=== PATIENT | male | born 1970 | race Caucasian/White ===

== ENCOUNTER → 2019-08-15 | Outpatient (REF) | payer BC ==
[2019-08-15 10:54] LABS: ALBUMIN 3.7 GM/DL (3.2-5.2); ALT/SGPT 117 U/L (12-78); BILIRUBIN,TOTAL 0.5 MG/DL (0.2-1.0); BLOOD UREA NITROGEN 14 MG/DL (7-18); CALCIUM LEVEL 8.4 MG/DL (8.5-10.1); CARBON DIOXIDE LEVEL 24 MEQ/L (21-32); CHLORIDE LEVEL 108 MEQ/L (98-107); CHOLESTEROL LEVEL 206 MG/DL (<200); CHOLESTEROL RISK RATIO 5.567 (<5); CREATININE FOR GFR 0.99 MG/DL (0.70-1.30); FREE T4 0.95 NG/DL (0.76-1.46); GLOMERULAR FILTRATION RATE > 60.0 (>60); GLUCOSE, FASTING 95 MG/DL (70-100); HDL CHOLESTEROL 37 MG/DL (>40); NON-HDL-C 169 MG/DL; POTASSIUM SERUM 4.4 MEQ/L (3.5-5.1); SODIUM LEVEL 140 MEQ/L (136-145); TOTAL PROTEIN 7.4 GM/DL (6.4-8.2); TRIGLYCERIDES LEVEL 498 MG/DL (<150)
[2019-08-15 10:55] LABS: BASO # 0.1 10^3/uL (0.0-0.2); BASO % 1.5 % (0.0-1.0); EOS # 0.2 10^3/uL (0.0-0.5); EOS % 3.4 % (0.0-3.0); HEMOGLOBIN 16.9 g/dl (13.5-17.5); LYMPH # 1.7 10^3/uL (1.5-5.0); LYMPH % 27.8 % (24.0-44.0); MEAN CORPUSCULAR HEMOGLOBIN 32.1 pg (27.0-33.0); MEAN CORPUSCULAR HGB CONC 35.2 g/dl (32.0-36.5); MEAN CORPUSCULAR VOLUME 91.1 fl (80.0-96.0); MONO # 0.4 10^3/uL (0.0-0.8); MONO % 6.4 % (0.0-5.0); NEUTROPHILS # 3.5 10^3/uL (1.5-8.5); NEUTROPHILS % 57.9 % (36.0-66.0); PLATELET COUNT, AUTOMATED 228 10^3/uL (150-450); RED BLOOD COUNT 5.27 10^6/uL (4.30-6.10); WHITE BLOOD COUNT 6.1 10^3/uL (4.0-10.0)
== END ==
LOC: M SFHCADAM 07:54
PROVIDERS: ATTEND Family Medicine
DX: Z00.00 Encounter for general adult medical examination without abnormal findings (principal)

== ENCOUNTER → 2019-10-10 | Outpatient (CLI) | payer BC ==
--- NOTE | 2019-10-10 20:09 | REP ---
Clinical: Elevated liver function tests. Technique: Real time silvestre scale ultrasound examination using curved array transducer. Findings: The liver is increased echogenicity with poor through transmission suggesting fatty infiltration. No focal hepatic lesion identified. Incidental area of focal fatty sparing surrounding the gallbladder fossa. The pancreas is incompletely evaluated due to interposed bowel gas. The gallbladder is normal and without gallstones, wall thickening, or pericholecystic fluid. No biliary ductal dilatation is appreciated and the common bile duct measures 4.0 mm diameter. The right kidney is normal in reniform shape without hydronephrosis and measures 10.2 x 7.0 x 4.7 cm. No ascites in the visualized right upper quadrant. Impression: 1. Hepatic steatosis. No focal hepatic lesion identified. Electronically Signed by Luis Alberto Zapien MD 10/10/2019 08:00 P
== END ==
LOC: M RAD 07:40
PROVIDERS: ATTEND Family Medicine
DX: R94.5 Abnormal results of liver function studies (principal)

== ENCOUNTER → 2019-12-19 | Outpatient (REF) | payer BC ==
[2019-12-19 14:20] LABS: ALBUMIN 4.3 GM/DL (3.2-5.2); BILIRUBIN,DIRECT 0.3 MG/DL (0.0-0.2); BILIRUBIN,TOTAL 1.1 MG/DL (0.2-1.0); CHOLESTEROL RISK RATIO 4.088 (<5); TOTAL PROTEIN 7.7 GM/DL (6.4-8.2)
== END ==
LOC: M PLALAB 08:00
PROVIDERS: ATTEND Family Medicine
DX: E78.1 Pure hyperglyceridemia (principal); R79.89 Other specified abnormal findings of blood chemistry

== ENCOUNTER → 2020-08-29 | Outpatient (REF) | payer BC | LOC: M SFHCADAM 12:33 | PROVIDERS: ATTEND Family Medicine | DX: R63.5 Abnormal weight gain (principal); Z12.11 Encounter for screening for malignant neoplasm of colon; E66.9 Obesity, unspecified ==

== ENCOUNTER → 2020-08-30 | Outpatient (REF) | payer BC ==
[2020-08-30 11:05] LABS: BASO # 0.1 10^3/uL (0.0-0.2); BASO % 1.7 % (0.0-1.0); EOS # 0.2 10^3/uL (0.0-0.5); EOS % 3.4 % (0.0-3.0); HEMATOCRIT 46.5 % (42.0-52.0); HEMOGLOBIN 15.9 g/dl (13.5-17.5); LYMPH # 1.6 10^3/uL (1.5-5.0); LYMPH % 22.8 % (24.0-44.0); MEAN CORPUSCULAR HEMOGLOBIN 31.2 pg (27.0-33.0); MEAN CORPUSCULAR HGB CONC 34.2 g/dl (32.0-36.5); MEAN CORPUSCULAR VOLUME 91.2 fl (80.0-96.0); MONO # 0.6 10^3/uL (0.0-0.8); MONO % 8.4 % (2.0-8.0); NEUTROPHILS # 4.2 10^3/uL (1.5-8.5); NEUTROPHILS % 59.7 % (36.0-66.0); PLATELET COUNT, AUTOMATED 225 10^3/uL (150-450); WHITE BLOOD COUNT 7.1 10^3/uL (4.0-10.0)
[2020-08-30 12:08] LABS: ALBUMIN 3.8 GM/DL (3.2-5.2); ALT/SGPT 147 U/L (12-78); BILIRUBIN,TOTAL 0.5 MG/DL (0.2-1.0); BLOOD UREA NITROGEN 12 MG/DL (7-18); CALCIUM LEVEL 8.8 MG/DL (8.5-10.1); CARBON DIOXIDE LEVEL 28 MEQ/L (21-32); CHLORIDE LEVEL 104 MEQ/L (98-107); CHOLESTEROL LEVEL 182 MG/DL (<200); CHOLESTEROL RISK RATIO 4.918 (<5); GLOMERULAR FILTRATION RATE > 60.0 (>56); GLUCOSE, FASTING 84 MG/DL (70-100); HDL CHOLESTEROL 37 MG/DL (>40); NON-HDL-C 145 MG/DL; POTASSIUM SERUM 4.3 MEQ/L (3.5-5.1); SODIUM LEVEL 139 MEQ/L (136-145); TOTAL PROTEIN 7.3 GM/DL (6.4-8.2); TRIGLYCERIDES LEVEL 487 MG/DL (<150)
[2020-08-30 15:43] LABS: HEMOGLOBIN A1c 4.7 %
== END ==
LOC: M PLALAB 09:46
PROVIDERS: ATTEND Family Medicine
DX: R63.5 Abnormal weight gain (principal); Z12.11 Encounter for screening for malignant neoplasm of colon; E66.9 Obesity, unspecified

== ENCOUNTER → 2020-09-07 | Outpatient (REF) | payer BC ==
[2020-09-07 13:27] LABS: FERRITIN 26 NG/ML (26-388); IRON (FE) 83 UG/DL (65-175); PERCENT SATURATION 18.1 % (19.7-50.0); TOTAL IRON BINDING CAPACITY 459 UG/DL (250-450)
[2020-09-07 13:31] LABS: HEPATITIS B SURFACE ANTIBODY POSITIVE (POSITIVE)
[2020-09-07 13:42] LABS: HEPATITIS B SURFACE ANTIGEN NEGATIVE (NEGATIVE)
[2020-09-07 15:34] LABS: IMMUNOGLOBULIN G 1110 MG/DL (681-1648)
[2020-09-08 13:06] LABS: ANTINUCLEAR ANTIBODIES DIRECT Negative (Negative); HEPATITIS A IgG TOTAL Positive (Negative); HEPATITIS B CORE ANTIBODY IGG Positive (Negative)
== END ==
LOC: M SFHCADAM 08:48
PROVIDERS: ATTEND Family Medicine
DX: R79.89 Other specified abnormal findings of blood chemistry (principal)
CPT/HCPCS: 82728; 82784; 83550; 84439; 84443; 86038; 86704; 86706; 86708; 87340; G0472

== ENCOUNTER → 2020-10-26 | Outpatient (CLI) | payer BC ==
[~2020-10-26] MED LIST: ATOR40TA75 PO; BUSP15TA47 PO; DIAZ5TAB PO; LISI10TA22 PO; NEUR300C PO; PRIL20TA2 PO; RA N55SP
== END ==
LOC: M LABSMTC 09:45
PROVIDERS: ATTEND Anesthesiology
DX: Z01.812 Encounter for preprocedural laboratory examination (principal); Z20.822 Contact with and (suspected) exposure to COVID-19

== ENCOUNTER 2020-10-31 06:54 | Day surgery (SDC) | payer BC ==
[~2020-10-31] VITALS: Ht 177.8 cm; Wt 97.1 kg
[~2020-10-31 06:54] MED LIST changes: +NS 1,000 ML IV ONE
[2020-10-31] MEDS ORDERED: LIDOCAINE 2% 100MG/5ML SDV (FOR ANES.) As Ordered ONE (08:05)
[2020-10-31] MEDS ORDERED: propofoL 200 MG/20 ML VIAL As Ordered ONE ×2 (08:05→09:15)
--- NOTE | 2020-10-31 09:24 | ROOR ---
Patient Name: Keny Self Procedure Date: 10/31/2020 8:45 AM Date of : 1970 Age: 50 Room: [facility] Gender: Male Note Status: Finalized Procedure: Colonoscopy Indications: Screening for colorectal malignant neoplasm Providers: Herb Velez MD Referring MD: Naomie Gonzales DO Requesting Provider: Medicines: Monitored Anesthesia Care Complications: No immediate complications. Procedure: Pre-Anesthesia Assessment: - Prior to the procedure, a History and Physical was performed, and patient medications and allergies were reviewed. The patient is competent. The risks and benefits of the procedure and the sedation options and risks were discussed with the patient. All questions were answered and informed consent was obtained. Patient identification and proposed procedure were verified by the physician, the nurse and the anesthesiologist in the endoscopy suite. Mental Status Examination: alert and oriented. Airway Examination: normal oropharyngeal airway and neck mobility. Respiratory Examination: clear to auscultation. CV Examination: normal. Prophylactic Antibiotics: The patient does not require prophylactic antibiotics. Prior Anticoagulants: The patient has taken no previous anticoagulant or antiplatelet agents. ASA Grade Assessment: II - A patient with mild systemic disease. After reviewing the risks and benefits, the patient was deemed in satisfactory condition to undergo the procedure. The anesthesia plan was to use monitored anesthesia care (MAC). Immediately prior to administration of medications, the patient was re-assessed for adequacy to receive sedatives. The heart rate, respiratory rate, oxygen saturations, blood pressure, adequacy of pulmonary ventilation, and response to care were monitored throughout the procedure. The physical status of the patient was re-assessed after the procedure. The Colonoscope was introduced through the anus and advanced to the cecum, identified by appendiceal orifice and ileocecal valve. The colonoscopy was performed without difficulty. The patient tolerated the procedure well. The quality of the bowel preparation was adequate to identify polyps. Findings: The perianal and digital rectal examinations were normal. A diminutive polyp was found in the sigmoid colon. The polyp was flat. The polyp was removed with a cold biopsy forceps. Resection and retrieval were complete. Estimated blood loss was minimal. The entire examined colon appeared normal on direct and retroflexion views. Impression: - One diminutive polyp in the sigmoid colon, removed with a cold biopsy forceps. Resected and retrieved. - The entire examined colon is normal on direct and retroflexion views. Recommendation: - Discharge patient to home (ambulatory). - Await pathology results. - Repeat colonoscopy in 10 years for screening purposes. Procedure Code(s): --- Professional --- 26031, Colonoscopy, flexible; with biopsy, single or multiple Diagnosis Code(s): --- Professional --- Z12.11, Encounter for screening for malignant neoplasm of colon K63.5, Polyp of colon CPT copyright 2019 [employer]. All rights reserved. The codes documented in this report are preliminary and upon mounted police officer review may be revised to meet current compliance requirements. Herb Velez MD Herb Velez MD 10/31/2020 9:23:53 AM Electronically signed by Herb Velez MD Number of Addenda: 0 Note Initiated On: 10/31/2020 8:45 AM Estimated Blood Loss: Estimated blood loss was minimal.
[2020-10-31 09:44] VITALS: BP 139/96
== END 2020-10-31 09:47 | disposition home or self-care (01) ==
LOC: M OPP 06:54
PROVIDERS: ATTEND Surgery
DX: Z12.11 Encounter for screening for malignant neoplasm of colon (principal); K63.5 Polyp of colon; Z79.899 Other long term (current) drug therapy

== ENCOUNTER → 2020-11-05 | Outpatient (REF) | payer BC ==
[~2020-11-05] MED LIST changes: -NS 1,000 ML IV ONE
[2020-11-05 18:12] LABS: FREE T4 0.81 NG/DL (0.76-1.46); THYROID STIMULATING HORMONE 0.722 uIU/ML (0.358-3.740)
== END ==
LOC: M SFHCADAM 14:51
PROVIDERS: ATTEND Family Medicine
DX: E03.9 Hypothyroidism, unspecified (principal)

== ENCOUNTER 2021-02-06 07:44 | Inpatient (IN) | payer BC ==
[~2021-02-06] VITALS: Ht 177.8 cm; Wt 93.1 kg
[2021-02-06] MEDS ORDERED: LEVO75TA4 PO (08:01)
[2021-02-06 11:11] LABS: BASO # 0.1 10^3/uL (0.0-0.2); BASO % 0.7 % (0.0-1.0); EOS # 0.2 10^3/uL (0.0-0.5); EOS % 1.5 % (0.0-3.0); HEMATOCRIT 45.7 % (42.0-52.0); LYMPH # 0.8 10^3/uL (1.5-5.0); LYMPH % 5.5 % (24.0-44.0); MEAN CORPUSCULAR HEMOGLOBIN 31.2 pg (27.0-33.0); MEAN CORPUSCULAR VOLUME 89.1 fl (80.0-96.0); MONO # 1.1 10^3/uL (0.0-0.8); NEUTROPHILS # 11.3 10^3/uL (1.5-8.5); NEUTROPHILS % 83.3 % (36.0-66.0); PLATELET COUNT, AUTOMATED 230 10^3/uL (150-450); RED BLOOD COUNT 5.13 10^6/uL (4.30-6.10); WHITE BLOOD COUNT 13.6 10^3/uL (4.0-10.0)
[2021-02-06] MEDS ORDERED: ONDANSETRON 4MG/2ML VIAL IV ONE (11:30)
[2021-02-06] MEDS ORDERED: NS 1,000 ML IV ONE ×2 (11:30→13:25)
[2021-02-06 11:45] LABS: ALT/SGPT 102 U/L (12-78); AMYLASE 109 U/L (25-115); BILIRUBIN,DIRECT 0.8 MG/DL (0.0-0.2); BILIRUBIN,TOTAL 1.6 MG/DL (0.2-1.0); BLOOD UREA NITROGEN 12 MG/DL (7-18); CALCIUM LEVEL 7.1 MG/DL (8.5-10.1); CARBON DIOXIDE LEVEL 30 MEQ/L (21-32); CHLORIDE LEVEL 96 MEQ/L (98-107); CREATININE FOR GFR 1.07 MG/DL (0.70-1.30); GLOMERULAR FILTRATION RATE > 60.0 (>56); GLUCOSE, FASTING 99 MG/DL (70-100); LIPASE 1762 U/L (73-393); POTASSIUM SERUM 3.3 MEQ/L (3.5-5.1); SODIUM LEVEL 135 MEQ/L (136-145); TOTAL PROTEIN 7.1 GM/DL (6.4-8.2)
[2021-02-06 12:00] LABS: BASO # 0.1 10^3/uL (0.0-0.2); BASO % 0.8 % (0.0-1.0); EOS # 0.2 10^3/uL (0.0-0.5); EOS % 1.6 % (0.0-3.0); LYMPH # 0.8 10^3/uL (1.5-5.0); LYMPH % 6.3 % (24.0-44.0); MEAN CORPUSCULAR HEMOGLOBIN 30.9 pg (27.0-33.0); MEAN CORPUSCULAR HGB CONC 34.9 g/dl (32.0-36.5); MEAN CORPUSCULAR VOLUME 88.7 fl (80.0-96.0); MONO # 1.1 10^3/uL (0.0-0.8); MONO % 8.2 % (2.0-8.0); NEUTROPHILS # 10.6 10^3/uL (1.5-8.5); PLATELET COUNT, AUTOMATED 209 10^3/uL (150-450); RED BLOOD COUNT 4.85 10^6/uL (4.30-6.10); WHITE BLOOD COUNT 12.9 10^3/uL (4.0-10.0)
[2021-02-06] MEDS: GASTROGRAFIN SOLUTION 30ML PO SCH ×2 (12:00→12:23)
[2021-02-06] MEDS ORDERED: ISOVUE-370 76% 100ML VIAL As Ordered ONE (12:19)
[2021-02-06 12:28] LABS: CK-MB VALUE MASS < 1.0 NG/ML (<3.6); CPK CREATINE PHOSPHOKINASE 143 U/L (39-308); TROPONIN I < 0.02 NG/ML (< 0.10)
[2021-02-06 12:34] LABS: LDH LACTATE DEHYDROGENASE 430 U/L (87-241)
--- NOTE | 2021-02-06 13:43 | REP ---
INDICATION: abdominal pain. COMPARISON: None. TECHNIQUE: Standard helical technique after the intravenous administration of 100 cc Isovue 370. FINDINGS: Curvilinear densities are seen in the lung bases right greater than left. There are no pleural or pericardial effusion. There are no enhancing hepatic lesions. The gallbladder, spleen, adrenal glands, and kidneys are within normal limits. There is peripancreatic fatty infiltration. There is fatty infiltration in the left anterior pararenal space. There is a small amount of fluid in the left anterior pararenal space. There is thickening Zuckerekandl fascia on the left. There is bilateral thickening of the lateroconal fascia. There is a tiny amount of free fluid in the lesser sac. The bowel loops are within normal limits. The abdominal aorta and para-aortic regions are within normal limits. There is no evidence of a mass or adenopathy. The osseous structures are within normal limits for the patient's age. IMPRESSION: 1. Pancreatitis. 2. Bilateral lung base subsegmental atelectatic changes. 3. Other findings as described above. <Electronically signed by Edson Wick > 02/06/21 [id number]
[2021-02-06] MEDS ORDERED: AMIT25TA17 PO (14:12)
[2021-02-06] MEDS ORDERED: OMEP40CA4 PO (14:12)
[2021-02-06] MEDS ORDERED: ASPI81TA26 PO (14:12)
[2021-02-06] MEDS ORDERED: AZEL1SPR3 NARES (14:12)
[2021-02-06] MEDS ORDERED: HOME MED LIST COMPLETE! XX SCH (14:15)
[2021-02-06] MEDS ORDERED: KCL 10MEQ/100ML SWI (KRUN) 10 MEQ in IV 1 EA IV ONE (14:30)
[2021-02-06 14:51] LABS: RSV AMPLIFICATION NEGATIVE (NEGATIVE)
[2021-02-06] MEDS ORDERED: KETOROLAC 30 MG/ML 1ML VIAL IV ONE (15:00)
--- NOTE | 2021-02-06 15:09 | REP ---
INDICATION: abdominl/ elevated LFT. COMPARISON: Comparison is made with today's CT study. There is a comparison ultrasound from October 10, 2019. TECHNIQUE: Right upper quadrant sonography. FINDINGS: Scanning through the right upper quadrant of the abdomen demonstrates a normal sized, thin-walled gallbladder without evidence of stone or polyp. Common bile duct is normal measuring 0.2 cm in greatest diameter. No focal liver lesion is seen. Liver size is normal. There is echogenic inflamed appearing edematous fat adjacent to the pancreas. No other pancreatic abnormality is observed. No right renal abnormality is seen. There is no evidence of ascites. The right kidney measures 12.9 x 5.6 x 5.6 cm. IMPRESSION: Edematous fat adjacent to the pancreas consistent with the CT findings of pancreatitis. Otherwise negative right upper quadrant sonogram. <Electronically signed by Abdirizak Reed > 02/06/21 [id number]
[2021-02-06] MEDS ORDERED: LR 1,000 ML IV SCH (15:30)
[2021-02-06] MEDS ORDERED: ONDANSETRON 4MG/2ML VIAL IV PRN (15:30)
[2021-02-06] MEDS ORDERED: MORPHINE 2 MG/ML 1ML VIAL (J2270) IV PRN (15:35)
[2021-02-06] MEDS ORDERED: busPIRone 5 MG TAB PO SCH (16:00)
[2021-02-06] MEDS ORDERED: PANTOPRAZOLE 40MG VIAL (C9113 PER 1) IV SCH (16:00)
[2021-02-06] MEDS ORDERED: diazePAM 5MG TABLET PO SCH (17:00)
[2021-02-06 17:06] VITALS: BP 133/91
[2021-02-06] MEDS: PANTOPRAZOLE 40MG VIAL (C9113 PER 1) IV SCH (17:20)
[2021-02-06] MEDS: POTASSIUM CHLORIDE INJ 40 MEQ in LR 1,000 ML IV SCH (18:42)
[2021-02-06 22:00] VITALS: BP 134/92
[2021-02-06] MEDS: diazePAM 5MG TABLET PO SCH (22:45)
[2021-02-06] MEDS: KETOROLAC 30 MG/ML 1ML VIAL IV PRN (22:45)
[2021-02-06] MEDS: GABAPENTIN 300 MG CAP PO SCH (22:46)
[2021-02-06] MEDS: AMITRIPTYLINE 25MG TABLET PO SCH (22:46)
[2021-02-07] MEDS: POTASSIUM CHLORIDE INJ 40 MEQ in LR 1,000 ML IV SCH ×3 (00:53→16:16)
[2021-02-07] MEDS: KETOROLAC 30 MG/ML 1ML VIAL IV PRN ×3 (04:50→21:25)
[2021-02-07] MEDS: PANTOPRAZOLE 40MG VIAL (C9113 PER 1) IV SCH ×2 (04:50→16:16)
[2021-02-07] MEDS: LEVOTHYROXINE 75MCG TABLET (0.075MG) PO SCH (05:33)
--- NOTE | 2021-02-07 05:56 | ECGEPIP ---
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
[2021-02-07 06:00] VITALS: BP 138/90
[2021-02-07] MEDS: busPIRone 5 MG TAB PO SCH ×3 (06:38→16:17)
[2021-02-07] MEDS: diazePAM 5MG TABLET PO SCH ×3 (06:39→21:25)
--- NOTE | 2021-02-07 06:51 | HPEPDOC ---
General Date of Admission 02/06/21 Date of Service: Feb 06, 2021 Chief Complaint The patient is a 50-year-old male admitted with a reason for visit of Vomiting, Diarrhea, Abd Pain. 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 Patients reports that 5 days ago he suddenly felt crampy abdominal pain after about 2 hours after lunch then he started vomiting. He vomited multiple times that night. He though he had food poisoning. It was the long weekend and he stayed at home and was able to tolerate crackers and liquids. Yesterday he wanted to go back to work so had a granola bar and again vomited then continued to have nausea. He also continued to have left upper quadrant abdominal pain dull aching, deep seated about 4/10 in intensity which would not go away and worsened when he was trying to eat solids. He has not been able to keep any solid food down so came to the ED today. Evaluation in the ED showed elevated lipase, elevated ALT, AST more than his baseline. CT ab and pelvis showed features of pancreatic inflammation. He is admitted for Acute pancreatitis. Home Medications Scheduled Amitriptyline HCl (Amitriptyline HCl) 25 Mg Tablet, 25 MG PO QHS, (Reported) Aspirin (Aspirin EC) 81 Mg Tablet.dr, 81 MG PO DAILY, (Reported) Atorvastatin Calcium (Atorvastatin Calcium) 40 Mg Tablet, 40 MG PO DAILY, (Reported) Buspirone HCl (Buspirone HCl) 15 Mg Tablet, 15 MG PO TID, (Reported) Diazepam (Diazepam) 5 Mg Tablet, 5 MG PO TID, (Reported) TAKES AM/1200/1700 Gabapentin (Neurontin) 300 Mg Capsule, 300 MG PO TID, (Reported) TAKES 1200/1700/HS Levothyroxine Sodium (Levothyroxine Sodium) 75 Mcg Tablet, 75 MCG PO QAM, (Reported) Lisinopril (Lisinopril) 10 Mg Tablet, 10 MG PO DAILY, (Reported) Omeprazole (Omeprazole) 40 Mg Capsule.dr, 40 MG PO BID, (Reported) TAKES AM/1700 Scheduled PRN Azelastine HCl (Azelastine HCl) 0.1% [employer].pump, 2 SPRAYS NARES DAILY PRN for ALLERGIES, (Reported) Allergies Coded Allergies: No Known Allergies (Unverified , 10/26/20) Past Medical History Medical History Asthma, hyperlipidemia, fatty liver, hypertension, anxiety and panic disorder, hypothyroidism, insomnia, GERD Surgical History L ANKLE HERNIA ABD COLONOSCOPY 10/31/20 Family History FATHER: ALIVE, ANXIETY AND PANIC, HYPOTHYROIDISM, HYPERTENSION MOTHER: ALIVE, ATRIAL FIBRILLATION, ANXIETY AND PANIC, INSOMNIA, HYPERTENSION SIBLINGS: HYPOTHYROIDISM, HYPERTENSION Social History * Smoker: Denies Alcohol: occationally Drugs: denies A-FIB/CHADSVASC A-FIB History Current/History of A-Fib/PAF?: No Review of Systems Constitutional: Reports: Chills Eyes: Denies: Pain, Vision change ENT: Denies: Head Aches, Ear Pain, Dysphagia Skin: Denies: Rash, Lesions, Breakdown Pulmonary: Denies: Dyspnea, Cough Cardiovascular: Denies: Chest Pain, Palpitations, Orthopnea, Paroxysmal Noc. Dyspnea, Lt Headedness Gastrointestinal: Reports: Nausea, Vomiting, Abdominal Pain Genitourinary: Denies: Dysuria, Frequency, Incontinence, Retention Musculoskeletal: Denies: Neck Pain, Back Pain, Joint Pain, Muscle Pain, Spasms Neurological: Denies: Weakness, Numbness, Change in speech, Confusion Psych: Reports: Anxiety Physical Examination General Exam: Positive: Alert, Cooperative, No Acute Distress Eye Exam: Positive: PERRLA, Conjunctiva & lids normal, EOMI; Negative: Sclera icteric ENT Exam: Positive: Atraumatic, Mucous membr. moist/pink, Pharynx Normal Neck Exam: Positive: Supple; Negative: JVD, thyromegaly Chest Exam: Positive: Clear to auscultation, Normal air movement Heart Exam: Positive: Tachycardic, Regular Rhythm, Normal S1, Normal S2; Negative: Murmurs, Rubs Abdomen Exam: Positive: BS Hypoactive, Soft, Tenderness (left upper quadrant) Extremity Exam: Negative: Clubbing, Cyanosis, Edema Neuro Exam: Positive: Normal Speech, Strength at 5/5 X4 ext, Normal Tone Psych Exam: Positive: Anxiety, Memory Intact, Oriented x 3 Vital Signs Vital Signs Date Time Temp Pulse Resp B/P (MAP) Pulse Ox O2 Delivery O2 Flow Rate FiO2 02/06/21 07:44 97.0 101 18 141/95 (110) 98 Room Air Laboratory Data Labs 24H Laboratory Tests 2 02/06/21 10:13: Immature Granulocyte % (Auto) 1.0, Neutrophils (%) (Auto) 83.3H, Lymphocytes (%) (Auto) 5.5L, Monocytes (%) (Auto) 8.0, Eosinophils (%) (Auto) 1.5, Basophils (%) (Auto) 0.7, Neutrophils # (Auto) 11.3H, Lymphocytes # (Auto) 0.8L, Monocytes # (Auto) 1.1H, Eosinophils # (Auto) 0.2, Basophils # (Auto) 0.1, Nucleated Red Blood Cells % (auto) 0.0, Anion Gap 9, Glomerular Filtration Rate > 60.0, Calcium Level 7.1L, Total Bilirubin 1.6H, Direct Bilirubin 0.8H, Aspartate Amino Transf (AST/SGOT) 105H, Alanine Aminotransferase (ALT/SGPT) 102H, Alkaline Phosphatase 69, Lactate Dehydrogenase 430H, C-Reactive Protein, Quantitative 24.10H, Total Protein 7.1, Albumin 3.0L, Albumin/Globulin Ratio 0.7, Amylase Level 109, Lipase 1762H 02/06/21 11:41: Immature Granulocyte % (Auto) 1.1, Neutrophils (%) (Auto) 82.0H, Lymphocytes (%) (Auto) 6.3L, Monocytes (%) (Auto) 8.2H, Eosinophils (%) (Auto) 1.6, Basophils (%) (Auto) 0.8, Neutrophils # (Auto) 10.6H, Lymphocytes # (Auto) 0.8L, Monocytes # (Auto) 1.1H, Eosinophils # (Auto) 0.2, Basophils # (Auto) 0.1, Nucleated Red Blood Cells % (auto) 0.0, Total Creatine Kinase 143, Creatine Kinase MB < 1.0, Creatine Kinase MB Relative Index 0.70, Troponin I < 0.02 02/06/21 14:03: Coronavirus (COVID-19)(PCR) NEGATIVE, Influenza Type A (RT-PCR) NEGATIVE, Influenza Type B (RT-PCR) NEGATIVE, Respiratory Syncytial Virus (PCR) NEGATIVE CBC/BMP Laboratory Tests 02/06/21 10:13 02/06/21 11:41 Assessment/Plan 50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 Patients reports that 5 days ago he suddenly felt crampy abdominal pain after about 2 hours after lunch then he started vomiting. He vomited multiple times that night. He though he had food poisoning. It was the long weekend and he stayed at home and was able to tolerate crackers and liquids. Yesterday he wanted to go back to work so had a granola bar and again vomited then continued to have nausea. He also continued to have left upper quadrant abdominal pain dull aching, deep seated about 4/10 in intensity which would not go away and worsened when he was trying to eat solids. He has not been able to keep any solid food down so came to the ED today. Evaluation in the ED showed elevated lipase, elevated ALT, AST more than his baseline. CT ab and pelvis showed features of pancreatic inflammation. He is admitted for Acute pancreatitis. Acute Pancreatitis Will allow clear liquids IVF, pain control with morphine Transaminitis Gall bladder US was negative for stones or dilatation of CBD. CT abd neg for stones He does have baseline abnormal LFTs from 2020 which primary felt to be due to fatty liver. Now worsened due to pancreatitis with localized inflammation with some functional obstruction at lily open of the ducts in the duodenum. Will hold benzos and statin for now will monitor. Asthma home inhalors Hypertension may continue lisinopril Anxiety and Panic disorder will try to avoid benzos, continue other meds. GERD PPI Hypothyroid Synthroid. Plan / VTE VTE Prophylaxis Ordered?: Yes Mona Johnson MD Feb 06, 2021 15:26
[2021-02-07 08:16] LABS: BASO # 0.1 10^3/uL (0.0-0.2); BASO % 0.6 % (0.0-1.0); EOS # 0.2 10^3/uL (0.0-0.5); EOS % 2.5 % (0.0-3.0); HEMATOCRIT 37.5 % (42.0-52.0); HEMOGLOBIN 13.3 g/dl (13.5-17.5); LYMPH # 0.8 10^3/uL (1.5-5.0); LYMPH % 8.2 % (24.0-44.0); MEAN CORPUSCULAR HEMOGLOBIN 31.6 pg (27.0-33.0); MEAN CORPUSCULAR HGB CONC 35.5 g/dl (32.0-36.5); MEAN CORPUSCULAR VOLUME 89.1 fl (80.0-96.0); MONO # 0.8 10^3/uL (0.0-0.8); MONO % 8.6 % (2.0-8.0); NEUTROPHILS # 7.6 10^3/uL (1.5-8.5); NEUTROPHILS % 78.9 % (36.0-66.0); PLATELET COUNT, AUTOMATED 196 10^3/uL (150-450); RED BLOOD COUNT 4.21 10^6/uL (4.30-6.10); WHITE BLOOD COUNT 9.6 10^3/uL (4.0-10.0)
[2021-02-07] MEDS: amLODIPine 5 MG TAB PO SCH (08:22)
[2021-02-07] MEDS: ENOXAPARIN 40MG/0.4ML SYRINGE (J1650 PER 10MG) SC SCH (08:22)
[2021-02-07 08:47] LABS: BLOOD UREA NITROGEN 9 MG/DL (7-18); CALCIUM LEVEL 6.7 MG/DL (8.5-10.1); CARBON DIOXIDE LEVEL 26 MEQ/L (21-32); CHLORIDE LEVEL 106 MEQ/L (98-107); CREATININE FOR GFR 0.84 MG/DL (0.70-1.30); GLOMERULAR FILTRATION RATE > 60.0 (>56); GLUCOSE, FASTING 99 MG/DL (70-100); LIPASE 3137 U/L (73-393); POTASSIUM SERUM 3.7 MEQ/L (3.5-5.1); SODIUM LEVEL 139 MEQ/L (136-145)
[2021-02-07 10:53] LABS: ALBUMIN 2.2 GM/DL (3.2-5.2); ALT/SGPT 87 U/L (12-78); BILIRUBIN,DIRECT 0.6 MG/DL (0.0-0.2); BILIRUBIN,TOTAL 1.1 MG/DL (0.2-1.0); TOTAL PROTEIN 5.5 GM/DL (6.4-8.2)
[2021-02-07] MEDS ORDERED: CALCIUM GLUCONATE 1,000 MG in D5W MINI-BAG PLUS 100 ML IV ONE (11:00)
[2021-02-07] MEDS: GABAPENTIN 300 MG CAP PO SCH ×3 (11:19→21:25)
--- NOTE | 2021-02-07 11:40 | IPNPDOC ---
Subjective Date Seen The patient was seen on 02/07/21. Subjective Chief Complaint/HPI Patient denies any abdominal pain this morning. He does say that he still has a little bit of nausea but it is better than yesterday. He did not require 1 dose of Toradol last night. He feels like he would be able to tolerate full liquids. Low-grade fever in the past 24 hours with a T-max of 100.8. Objective Physical Examination General Exam: Positive: Alert, Cooperative, No Acute Distress Eye Exam: Positive: PERRLA, Conjunctiva & lids normal, EOMI; Negative: Sclera icteric ENT Exam: Positive: Atraumatic, Mucous membr. 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 Patients reports that 5 days ago he suddenly felt crampy abdominal pain after about 2 hours after lunch then he started vomiting. He v omited multiple times that night. He though he had food poisoning. It was the long weekend and he stayed at home and was able to tolerate crackers and liquids. Yesterday he wanted to go back to work so had a granola bar and again vomited then continued to have nausea. He also continued to have left upper quadrant abdominal pain dull aching, deep seated about 4/10 in intensity which would not go away and worsened when he was trying to eat solids. He has not been able to keep any solid food down so came to the ED today. Evaluation in the ED showed elevated lipase, elevated ALT, AST more than his baseline. CT ab and pelvis showed features of pancreatic inflammation. He is admitted for Acute p ancreatitis. Acute Pancreatitis Lipase is increased from yesterday however patient feels symptomatically his belly is better his nausea is almost gone. We will advance diet to full liquids and observe Continue IV fluid pain control with Toradol and morphine as needed Transaminitis Gall bladder US was negative for stones or dilatation of CBD. CT abd neg for stones He does have baseline abnormal LFTs from 2019 which primary felt to be due to fatty liver. Now worsened due to pancreatitis with localized inflammation with some functional obstruction at the opening of the ducts in the duodenum. Will hold statin and lisinopril for now Statin little better Asthma home inhalors Hypertension We will give amlodipine in place of lisinopril in view of his pancreatitis Anxiety and Panic disorder will try to avoid benzos, continue other meds. GERD PPI Hypothyroid Synthroid. Plan/VTE VTE Prophylaxis Ordered?: Yes VS, I&O, 24H, Fishbone Vital Signs/I&O Vital Signs Date Time Temp Pulse Resp B/P (MAP) Pulse Ox O2 Delivery O2 Flow Rate FiO2 02/07/21 08:22 78 184/112 02/07/21 06:38 99.1 02/07/21 06:00 18 93 Room Air I&O- Last 24 Hours up to 6 AM 02/07/21 05:59 Intake Total 3480 ml Output Total 125 ml Balance 3355 ml Laboratory Data 24H LABS Laboratory Tests 2 02/06/21 11:41: Immature Granulocyte % (Auto) 1.1, Neutrophils (%) (Auto) 82.0H, Lymphocytes (%) (Auto) 6.3L, Monocytes (%) (Auto) 8.2H, Eosinophils (%) (Auto) 1.6, Basophils (%) (Auto) 0.8, Neutrophils # (Auto) 10.6H, Lymphocytes # (Auto) 0.8L, Monocytes # (Auto) 1.1H, Eosinophils # (Auto) 0.2, Basophils # (Auto) 0.1, Nucleated Red Blood Cells % (auto) 0.0, Total Creatine Kinase 143, Creatine Kinase MB < 1.0, Creatine Kinase MB Relative Index 0.70, Troponin I < 0.02 02/06/21 14:03: Coronavirus (COVID-19)(PCR) NEGATIVE, Influenza Type A (RT-PCR) NEGATIVE, Influenza Type B (RT-PCR) NEGATIVE, Respiratory Syncytial Virus (PCR) NEGATIVE 02/07/21 07:00: Immature Granulocyte % (Auto) 1.2, Neutrophils (%) (Auto) 78.9H, Lymphocytes (%) (Auto) 8.2L, Monocytes (%) (Auto) 8.6H, Eosinophils (%) (Auto) 2.5, Basophils (%) (Auto) 0.6, Neutrophils # (Auto) 7.6, Lymphocytes # (Auto) 0.8L, Monocytes # (Auto) 0.8, Eosinophils # (Auto) 0.2, Basophils # (Auto) 0.1, Nucleated Red Blood Cells % (auto) 0.0, Anion Gap 7L, Glomerular Filtration Rate > 60.0, Calcium Level 6.7L, Total Bilirubin 1.1H, Direct Bilirubin 0.6H, Aspartate Amino Transf (AST/SGOT) 93H, Alanine Aminotransferase (ALT/SGPT) 87H, Alkaline Phosphatase 64, Total Protein 5.5#L, Albumin 2.2#L, Albumin/Globulin Ratio 0.7, Lipase 3137H CBC/BMP Laboratory Tests 02/06/21 11:41 02/07/21 07:00 Mona Johnson MD Feb 07, 2021 11:39
[2021-02-07 14:00] VITALS: BP 135/82
[2021-02-07] MEDS: AMITRIPTYLINE 25MG TABLET PO SCH (21:25)
[2021-02-07 22:00] VITALS: BP 148/95
[2021-02-08] MEDS: POTASSIUM CHLORIDE INJ 40 MEQ in LR 1,000 ML IV SCH (03:35)
[2021-02-08] MEDS: PANTOPRAZOLE 40MG VIAL (C9113 PER 1) IV SCH (04:12)
[2021-02-08] MEDS: KETOROLAC 30 MG/ML 1ML VIAL IV PRN (05:39)
[2021-02-08] MEDS: LEVOTHYROXINE 75MCG TABLET (0.075MG) PO SCH (05:39)
[2021-02-08 06:00] VITALS: BP 161/88
[2021-02-08 06:14] LABS: BASO # 0.1 10^3/uL (0.0-0.2); BASO % 0.5 % (0.0-1.0); EOS # 0.2 10^3/uL (0.0-0.5); EOS % 2.3 % (0.0-3.0); HEMATOCRIT 37.4 % (42.0-52.0); HEMOGLOBIN 13.2 g/dl (13.5-17.5); LYMPH # 0.8 10^3/uL (1.5-5.0); LYMPH % 8.7 % (24.0-44.0); MEAN CORPUSCULAR HEMOGLOBIN 31.2 pg (27.0-33.0); MEAN CORPUSCULAR HGB CONC 35.3 g/dl (32.0-36.5); MEAN CORPUSCULAR VOLUME 88.4 fl (80.0-96.0); MONO # 0.8 10^3/uL (0.0-0.8); MONO % 8.1 % (2.0-8.0); NEUTROPHILS # 7.3 10^3/uL (1.5-8.5); NEUTROPHILS % 78.2 % (36.0-66.0); PLATELET COUNT, AUTOMATED 215 10^3/uL (150-450); RED BLOOD COUNT 4.23 10^6/uL (4.30-6.10); WHITE BLOOD COUNT 9.4 10^3/uL (4.0-10.0)
[2021-02-08] MEDS: busPIRone 5 MG TAB PO SCH (06:34)
[2021-02-08] MEDS: diazePAM 5MG TABLET PO SCH (06:34)
[2021-02-08 06:42] LABS: ALBUMIN 2.2 GM/DL (3.2-5.2); ALT/SGPT 107 U/L (12-78); BILIRUBIN,DIRECT 0.4 MG/DL (0.0-0.2); BLOOD UREA NITROGEN 6 MG/DL (7-18); CALCIUM LEVEL 7.3 MG/DL (8.5-10.1); CARBON DIOXIDE LEVEL 28 MEQ/L (21-32); CHLORIDE LEVEL 106 MEQ/L (98-107); CREATININE FOR GFR 0.83 MG/DL (0.70-1.30); GLOMERULAR FILTRATION RATE > 60.0 (>56); GLUCOSE, FASTING 101 MG/DL (70-100); LIPASE 3157 U/L (73-393); POTASSIUM SERUM 4.1 MEQ/L (3.5-5.1); SODIUM LEVEL 139 MEQ/L (136-145); TOTAL PROTEIN 5.6 GM/DL (6.4-8.2)
[2021-02-08 09:02] VITALS: BP 154/90
[2021-02-08] MEDS: ENOXAPARIN 40MG/0.4ML SYRINGE (J1650 PER 10MG) SC SCH (09:02)
[2021-02-08] MEDS: amLODIPine 5 MG TAB PO SCH (09:02)
[2021-02-08] MEDS ORDERED: AMLO1TAB24 PO (10:04)
[2021-02-08] MEDS ORDERED: IBUP-1114 PO (10:04)
--- NOTE | 2021-02-08 10:22 | DS.PDOC ---
Discharge Summary General Date of Admission Feb 06, 2021 at 15:26 Date of Discharge 02/08/21 Discharge Summary PROCEDURES PERFORMED DURING STAY: [None]. DISCHARGE DIAGNOSES: Acute Pancreatitis SECONDARY DIAGNOSIS: Asthma, hyperlipidemia, fatty liver, hypertension, GERD, anxiety, abnormal LFTs from 2019, COMPLICATIONS/CHIEF COMPLAINT: Acute Pancreatitis. 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 Patients reports that 5 days ago he suddenly felt crampy abdominal pain after about 2 hours after lunch then he started vomiting. He vomited multiple times that night. He though he had food poisoning. It was the long weekend and he stayed at home and was able to tolerate crackers and liquids. Yesterday he wanted to go back to work so had a granola bar and again vomited then continued to have nausea. He also continued to have left upper quadrant abdominal pain dull aching, deep seated about 4/10 in intensity which would not go away and worsened when he was trying to eat debra ds. He has not been able to keep any solid food down so came to the ED today. Evaluation in the ED showed elevated lipase, elevated ALT, AST more than his baseline. CT ab and pelvis showed features of pancreatic inflammation. He was admitted for Acute pancreatitis. Acute Pancreatitis No gall stones. Does drink alcohol occasionally Counselled to refrain from drinking. Have stopped atorvastatin and lisinopril as both rarely may cause pancreatitis. Once resolved may be introduced 1 at a time. No recent h/o viral prodromal symptoms Referral to GI suggested. No definite etiology at this time. Transaminitis Gall bladder US was negative for stones or dilatation of CBD. CT abd neg for stones He does have baseline abnormal LFTs from 2019 which primary felt to be due to fatty liver. Now worsened due to pancreatitis with localized inflammation with some functional obstruction at the opening of the ducts in the duodenum. Will hold statin and lisinopril for now Statin little better Asthma home inhalors Hypertension We will give amlodipine in place of lisinopril in view of his pancreatitis Lisinopril may cause pancreatitis though rare. Anxiety and Panic disorder will try to avoid benzos, continue other meds. GERD PPI Hypothyroid Synthroid. DISCHARGE MEDICATIONS: Please see below. ALLERGIES: Please see below. PHYSICAL EXAMINATION ON DISCHARGE: VITAL SIGNS: Please see below. General Exam: Positive: Alert, Cooperative, No Acute Distress Eye Exam: Positive: PERRLA, Conjunctiva & lids normal, EOMI; Negative: Sclera icteric ENT Exam: Positive: Atraumatic, Mucous membr. moist/pink, Pharynx Normal Neck Exam: Positive: Supple; Negative: JVD, thyromegaly Chest Exam: Positive: Clear to auscultation, Normal air movement Heart Exam: Positive: Tachycardic, Regular Rhythm, Normal S1, Normal S2; Negative: Murmurs, Rubs Abdomen Exam: Positive: Normal bowel sounds, BS Hyperactive, Soft; Negative: Tenderness Extremity Exam: Negative: Clubbing, Cyanosis, Edema Neuro Exam: Positive: Normal Speech, Strength at 5/5 X4 ext, Normal Tone Psych Exam: Positive: Anxiety, Memory Intact, Oriented x 3 LABORATORY DATA: Please see below. ACTIVITY: [As tolerated]. DIET: Low fat and low cholesterol DISCHARGE PLAN: Home DISCHARGE INSTRUCTIONS: PMD in 1 to 2 weeks Suggest referral to GI ITEMS TO FOLLOWUP ON ON OUTPATIENT: LFts and Lipase. DISCHARGE CONDITION: [Stable]. TIME SPENT ON DISCHARGE: 35 minutes. Vital Signs/I&Os Vital Signs Date Time Temp Pulse Resp B/P (MAP) Pulse Ox O2 Delivery O2 Flow Rate FiO2 02/08/21 09:02 84 154/90 02/08/21 06:00 98.7 18 95 Room Air l I&O- Last 24 Hours up to 6 AM 02/08/21 05:59 Intake Total 1860 ml Output Total 1872 ml Balance -12 ml Laboratory Data Labs 24H Laboratory Tests 2 02/08/21 05:42: Immature Granulocyte % (Auto) 2.2, Neutrophils (%) (Auto) 78.2H, Lymphocytes (%) (Auto) 8.7L, Monocytes (%) (Auto) 8.1H, Eosinophils (%) (Auto) 2.3, Basophils (%) (Auto) 0.5, Neutrophils # (Auto) 7.3, Lymphocytes # (Auto) 0.8L, Monocytes # (Auto) 0.8, Eosinophils # (Auto) 0.2, Basophils # (Auto) 0.1, Nucleated Red Blood Cells % (auto) 0.0, Anion Gap 5L, Glomerular Filtration Rate > 60.0, Calcium Level 7.3L, Total Bilirubin 1.0, Direct Bilirubin 0.4H, Aspartate Amino Transf (AST/SGOT) 99H, Alanine Aminotransferase (ALT/SGPT) 107H, Alkaline P hosphatase 75, Total Protein 5.6L, Albumin 2.2L, Albumin/Globulin Ratio 0.6, Lipase 3157H CBC/BMP Laboratory Tests 02/08/21 05:42 Discharge Medications Scheduled Amitriptyline HCl (Amitriptyline HCl) 25 Mg Tablet, 25 MG PO QHS, (Reported) Amlodipine Besylate (Amlodipine Besylate) 5 Mg Tablet, 5 MG PO DAILY Aspirin (Aspirin EC) 81 Mg Tablet.dr, 81 MG PO DAILY, (Reported) Buspirone HCl (Buspirone HCl) 15 Mg Tablet, 15 MG PO TID, (Reported) Diazepam (Diazepam) 5 Mg Tablet, 5 MG PO TID, (Reported) TAKES AM/1200/1700 Gabapentin (Neurontin) 300 Mg Capsule, 300 MG PO TID, (Reported) TAKES 1200/1700/HS Levothyroxine Sodium (Levothyroxine Sodium) 75 Mcg Tablet, 75 MCG PO QAM, (Reported) Omeprazole (Omeprazole) 40 Mg Capsule.dr, 40 MG PO BID, (Reported) TAKES AM/1700 Scheduled PRN Azelastine HCl (Azelastine HCl) 0.1% [place].pump, 2 SPRAYS NARES DAILY PRN for ALLERGIES, (Reported) Ibuprofen (Ibuprofen) 400 Mg Tablet, 400 MG PO TIDP PRN for PAIN LEVEL 5-10 Allergies Coded Allergies: No Known Allergies (Unverified , 10/26/20) Mona Johnson MD Feb 08, 2021 10:22
== END 2021-02-08 11:57 | disposition home or self-care (01) | DRG 282 ==
LOC: M ED 07:44 → ENRESERV 13:50 → M ED INP 15:26 → M MSPAV 17:07
PROVIDERS: ADMIT Internal Medicine Nephrology; ATTEND Internal Medicine Nephrology
DX: K85.90 Acute pancreatitis without necrosis or infection, unspecified (principal); I10 Essential (primary) hypertension; K76.0 Fatty (change of) liver, not elsewhere classified; J45.909 Unspecified asthma, uncomplicated; E78.5 Hyperlipidemia, unspecified; K21.9 Gastro-esophageal reflux disease without esophagitis; Z79.82 Long term (current) use of aspirin; Z79.899 Other long term (current) drug therapy; E03.9 Hypothyroidism, unspecified; G47.00 Insomnia, unspecified; Z20.822 Contact with and (suspected) exposure to COVID-19; F41.0 Panic disorder [episodic paroxysmal anxiety]; R74.01 Elevation of levels of liver transaminase levels

== ENCOUNTER → 2021-03-07 | Outpatient (REF) | payer BC ==
[~2021-03-07] MED LIST changes: +AMIT25TA17 PO; +AMLO1TAB24 PO; +ASPI81TA26 PO; +AZEL1SPR3 NARES; +IBUP-1114 PO; +LEVO75TA4 PO; +OMEP40CA4 PO
[2021-03-07 13:21] LABS: INR 1.07; PROTHROMBIN TIME 14.4 SECONDS (12.7-14.5)
[2021-03-07 13:48] LABS: ALBUMIN 3.9 GM/DL (3.2-5.2); ALT/SGPT 131 U/L (12-78); BILIRUBIN,TOTAL 0.7 MG/DL (0.2-1.0); BLOOD UREA NITROGEN 10 MG/DL (7-18); CALCIUM LEVEL 9.5 MG/DL (8.5-10.1); CARBON DIOXIDE LEVEL 28 MEQ/L (21-32); CHLORIDE LEVEL 104 MEQ/L (98-107); CHOLESTEROL LEVEL 274 MG/DL (<200); CHOLESTEROL RISK RATIO 5.829 (<5); CREATININE FOR GFR 1.05 MG/DL (0.70-1.30); GLOMERULAR FILTRATION RATE > 60.0 (>56); GLUCOSE, FASTING 86 MG/DL (70-100); HDL CHOLESTEROL 47 MG/DL (>40); NON-HDL-C 227 MG/DL; POTASSIUM SERUM 4.3 MEQ/L (3.5-5.1); SODIUM LEVEL 141 MEQ/L (136-145); TOTAL PROTEIN 7.6 GM/DL (6.4-8.2); TRIGLYCERIDES LEVEL 438 MG/DL (<150)
[2021-03-07 14:36] LABS: HIV 1&2 SCREEN CENTAUR NEGATIVE (NEGATIVE)
== END ==
LOC: M SFHCADAM 08:47
PROVIDERS: ATTEND Family Medicine
DX: R79.89 Other specified abnormal findings of blood chemistry (principal); Z79.899 Other long term (current) drug therapy; E78.5 Hyperlipidemia, unspecified

== ENCOUNTER → 2021-08-13 | Outpatient (REF) | LOC: M EMP 09:48 | PROVIDERS: ATTEND Family Medicine | DX: Z20.822 Contact with and (suspected) exposure to COVID-19 (principal) ==

== ENCOUNTER → 2022-03-28 | Outpatient (REF) | LOC: M EMP 08:21 | PROVIDERS: ATTEND Family Medicine | DX: Z20.822 Contact with and (suspected) exposure to COVID-19 (principal) ==

== ENCOUNTER 2022-08-20 13:57 | Emergency (ER) | payer BC ==
[~2022-08-20] VITALS: Ht 177.8 cm; Wt 90.1 kg
[2022-08-20 13:58] VITALS: BP 160/98
[2022-08-20 15:25] VITALS: BP 192/88
[2022-08-20] MEDS ORDERED: amLODIPine 5 MG TAB PO ONE (15:25)
[2022-08-20 15:26] LABS: BASO # 0.1 10^3/uL (0.0-0.2); BASO % 0.8 % (0.0-1.0); EOS # 0.2 10^3/uL (0.0-0.5); EOS % 1.8 % (0.0-3.0); HEMATOCRIT 44.8 % (42.0-52.0); HEMOGLOBIN 16.2 g/dl (13.5-17.5); LYMPH # 1.2 10^3/uL (1.5-5.0); LYMPH % 14.4 % (24.0-44.0); MEAN CORPUSCULAR HEMOGLOBIN 33.5 pg (27.0-33.0); MEAN CORPUSCULAR HGB CONC 36.2 g/dl (32.0-36.5); MEAN CORPUSCULAR VOLUME 92.8 fl (80.0-96.0); MONO # 0.6 10^3/uL (0.0-0.8); MONO % 6.6 % (2.0-8.0); NEUTROPHILS # 6.4 10^3/uL (1.5-8.5); NEUTROPHILS % 75.5 % (36.0-66.0); PLATELET COUNT, AUTOMATED 211 10^3/uL (150-450); RED BLOOD COUNT 4.83 10^6/uL (4.30-6.10); WHITE BLOOD COUNT 8.5 10^3/uL (4.0-10.0)
[2022-08-20 15:31] LABS: APPEARANCE, URINE CLEAR (CLEAR); BACTERIA, URINE AUTO NEGATIVE (NEGATIVE); BILIRUBIN, URINE AUTO NEGATIVE (NEGATIVE); BLOOD, URINE BLOOD NEGATIVE (NEGATIVE); COLOR, URINE YELLOW (YELLOW); GLUCOSE, URINE (UA) AUTO NEGATIVE (NEGATIVE); KETONE, URINE AUTO NEGATIVE (NEGATIVE); LEUKOCYTE ESTERASE, URINE AUTO NEGATIVE (NEGATIVE); NITRITE, URINE AUTO NEGATIVE (NEGATIVE); PROTEIN, URINE AUTO NEGATIVE (NEGATIVE); RBC, URINE AUTO 1 /HPF (0-3); SPECIFIC GRAVITY URINE AUTO 1.005 (1.002-1.035); SQUAMOUS EPITHELIAL CELL UR AU 0 /HPF (0-6); UROBILINOGEN, URINE AUTO 0.2 mg/dL (0.0-2.0); WBC, URINE AUTO 0 /HPF (0-3)
[2022-08-20 15:58] LABS: BILIRUBIN,DIRECT 0.6 MG/DL (<0.4); BILIRUBIN,TOTAL 1.8 MG/DL (0.3-1.2); TOTAL PROTEIN 6.8 G/DL (5.7-8.2)
== END 2022-08-20 15:52 | disposition home or self-care (01) ==
LOC: M ED 13:57
DX: I10 Essential (primary) hypertension (principal); I25.9 Chronic ischemic heart disease, unspecified; J45.909 Unspecified asthma, uncomplicated; E03.9 Hypothyroidism, unspecified; Z79.899 Other long term (current) drug therapy; Z79.82 Long term (current) use of aspirin

== ENCOUNTER → 2022-10-08 | Outpatient (REF) | payer BC | LOC: M SFHCADAM 16:39 | PROVIDERS: ATTEND Family Medicine | DX: Z00.00 Encounter for general adult medical examination without abnormal findings (principal); Z53.9 Procedure and treatment not carried out, unspecified reason ==

== ENCOUNTER → 2023-08-21 | Outpatient (REF) ==
[~2023-08-21] MED LIST changes: -AMIT25TA17 PO; +AMIT25TA19 PO
== END ==
LOC: M EMP 08:21
PROVIDERS: ATTEND Family Medicine
DX: Z11.52 Encounter for screening for COVID-19 (principal)

== ENCOUNTER → 2024-06-13 | Outpatient (CLI) | payer BC ==
[2024-06-13 11:14] LABS: BASO # 0.1 10^3/uL (0.0-0.2); EOS # 0.2 10^3/uL (0.0-0.5); EOS % 2.1 % (0.0-3.0); HEMATOCRIT 45.7 % (42.0-52.0); HEMOGLOBIN 15.6 g/dl (13.5-17.5); LYMPH % 25.4 % (24.0-44.0); MEAN CORPUSCULAR HEMOGLOBIN 28.6 pg (27.0-33.0); MEAN CORPUSCULAR HGB CONC 34.1 g/dl (32.0-36.5); MEAN CORPUSCULAR VOLUME 83.9 fl (80.0-96.0); MONO # 0.7 10^3/uL (0.0-0.8); MONO % 8.5 % (2.0-8.0); NEUTROPHILS # 4.9 10^3/uL (1.5-8.5); NEUTROPHILS % 61.7 % (36.0-66.0); PLATELET COUNT, AUTOMATED 263 10^3/uL (150-450); RED BLOOD COUNT 5.45 10^6/uL (4.30-6.10)
[2024-06-13 11:30] LABS: ALBUMIN 4.2 G/DL (3.2-5.2); ALKALINE PHOSPHATASE 55 U/L (40-129); ALT/SGPT 71 U/L (7.0-40); AST/SGOT 32 U/L (<34); BILIRUBIN,TOTAL 0.9 MG/DL (0.3-1.2); BLOOD UREA NITROGEN 20 MG/DL (9-23); CARBON DIOXIDE LEVEL 28 MMOL/L (20-31); CHLORIDE LEVEL 104 MMOL/L (98-107); CHOLESTEROL LEVEL 146 MG/DL (<200); CHOLESTEROL RISK RATIO 4.37 (<5); CREATININE FOR GFR 1.32 MG/DL (0.70-1.30); GLOMERULAR FILTRATION RATE > 60.0 (>56); GLUCOSE, FASTING 124 MG/DL (60-100); HDL CHOLESTEROL 33.4 MG/DL (>40); NON-HDL-C 112.6 MG/DL; POTASSIUM SERUM 3.8 MMOL/L (3.5-5.1); SODIUM LEVEL 140 MMOL/L (136-145); TOTAL PROTEIN 7.5 G/DL (5.7-8.2); TRIGLYCERIDES LEVEL 278 MG/DL (<150)
[2024-06-13 11:31] LABS: THYROID STIMULATING HORMONE 3.508 uIU/ML (0.55-4.78)
[2024-06-13 11:56] LABS: HIV 1&2 SCREEN NEGATIVE (NEGATIVE)
== END ==
LOC: M PLALAB 07:38
PROVIDERS: ATTEND Family Medicine
DX: Z00.00 Encounter for general adult medical examination without abnormal findings (principal); Z11.4 Encounter for screening for human immunodeficiency virus [HIV]

== ENCOUNTER → 2024-06-15 | Outpatient (CLI) | payer BC ==
[2024-06-15 11:24] LABS: HEMOGLOBIN A1c 5.2 % (4.0-6.0)
[2024-06-15 11:41] LABS: BLOOD UREA NITROGEN 21 MG/DL (9-23); CALCIUM LEVEL 9.5 MG/DL (8.5-10.1); CARBON DIOXIDE LEVEL 29 MMOL/L (20-31); CHLORIDE LEVEL 103 MMOL/L (98-107); CREATININE FOR GFR 1.26 MG/DL (0.70-1.30); GLOMERULAR FILTRATION RATE > 60.0 (>56); GLUCOSE, FASTING 111 MG/DL (60-100); SODIUM LEVEL 141 MMOL/L (136-145)
== END ==
LOC: M PLALAB 07:37
PROVIDERS: ATTEND Family Medicine
DX: R73.01 Impaired fasting glucose (principal)